=== PATIENT | female | born 1975 | race Caucasian/White ===

== ENCOUNTER 2022-11-30 10:41 | Day surgery (SDC) | payer BC ==
[2022-11-26 15:22] VITALS: BMI 23.0
[2022-11-30] MEDS ORDERED: PROPOFOL 40 ML ONE (12:14)
[2022-11-30] MEDS ORDERED: LIDOCAINE HCL/PF 2% SDV 5ML VIAL ONE (12:14)
[2022-11-30 12:40] VITALS: RESP 16; TEMP 97.1
[2022-11-30 13:07] VITALS: BP 113/62; PULSE 57
== END 2022-11-30 13:07 | disposition home or self-care (01) ==
LOC: FASU-ENDO 10:41
PROVIDERS: ATTEND Internal Medicine Gastroenterology
PROC: 0DJD8ZZ Inspection of Lower Intestinal Tract, Via Natural or Artificial Opening Endoscopic (ICD-10-PCS; principal; 2022-11-30 12:17)
DX: Z12.11 Encounter for screening for malignant neoplasm of colon (principal); K64.1 Second degree hemorrhoids
CPT/HCPCS: 81025